=== PATIENT | female | born 1980 | race Caucasian/White ===

== ENCOUNTER 2018-11-26 09:01 | Day surgery (SDC) | payer OTHER ==
[~2018-11-26 09:01] MED LIST: Fluorescein 5 ML Vial ONE
[2018-11-26] MEDS ORDERED: Propofol 200 MG/20 ML SDV ONE (09:37)
[2018-11-26] MEDS ORDERED: Succinylcholine 200 MG/10 ML MDV ONE (09:38)
[2018-11-26] MEDS ORDERED: Rocuronium 100 MG/10 ML Syringe ONE (09:38)
[2018-11-26] MEDS ORDERED: fentaNYL 250 MCG/5 ML SDV ONE (09:38)
[2018-11-26] MEDS ORDERED: Midazolam 1 MG/ML 2 ML SDV ONE (09:38)
[2018-11-26] MEDS ORDERED: Glycopyrrolate 0.2 MG/ML SDV ONE ×2 (09:39→12:47)
[2018-11-26] MEDS ORDERED: Ondansetron 4 MG/2 ML SDV ONE (09:39)
[2018-11-26] MEDS ORDERED: Neostigmine Methylsulfate 1 MG/ML 5 ML Syringe ONE (09:39)
[2018-11-26] MEDS ORDERED: Dexamethasone 4 MG/ML 5 ML MDV ONE (09:39)
[2018-11-26] MEDS: Lactated Ringers 1,000 ML IV SCH ×2 (10:25→21:16)
[2018-11-26] MEDS ORDERED: Scopolamine 1.5 MG Transdermal Patch TRDERM PRN (10:57)
--- NOTE | 2018-11-26 10:57 | PCM.PREANE ---
Preanesthetic Assessment - Anesthesia/Transfusion/Family Hx Anesthesia History: Prior Anesthesia Without Reaction Family History of Anesthesia Reaction: No Transfusion History: No Prior Transfusion(s) - Review of Systems General: No Symptoms Pulmonary: No Symptoms Cardiovascular: No Symptoms Gastrointestinal: No Symptoms Neurological: No Symptoms Other: Reports: None - Physical Assessment NPO Status Date: 11/25/18 O2 Sat by Pulse Oximetry: 99 Respiratory Rate: 16 Vital Signs: Last Vital Signs Temp 97.7 F 11/26/18 10:10 Pulse 91 11/26/18 10:10 Resp 16 11/26/18 10:10 BP 140/79 11/26/18 10:10 Pulse Ox 99 11/26/18 10:10 Height: 5 ft 9 in Weight: 103.419 kg ASA Class: 1 Mental Status: Alert & Oriented x3 Airway Class: Mallampati = 1 Dentition: Reports: Normal Dentition ROM/Head Extension: Full Lungs: Clear to Auscultation, Normal Respiratory Effort Cardiovascular: Regular Rate, Regular Rhythm - Lab Values: Laboratory Last Values WBC 7.88 K/uL (4.0-11.0) 11/26/18 10:27 RBC 4.67 M/uL (4.30-5.90) 11/26/18 10:27 Hgb 12.5 g/dL (12.0-16.0) 11/26/18 10:27 Hct 37.9 % (36.0-46.0) 11/26/18 10:27 MCV 81.2 fL (80.0-98.0) 11/26/18 10:27 MCH 26.8 pg (27.0-32.0) L 11/26/18 10:27 MCHC 33.0 g/dL (31.0-37.0) 11/26/18 10:27 RDW Std Deviation 43.5 fl (28.0-62.0) 11/26/18 10:27 RDW Coeff of Jose 15 % (11.0-15.0) 11/26/18 10:27 Plt Count 305 K/uL (150-400) 11/26/18 10:27 MPV 10.60 fL (7.40-12.00) 11/26/18 10:27 Nucleated RBC % 0.0 /100WBC 11/26/18 10:27 Nucleated RBCs # 0 K/uL 11/26/18 10:27 - Allergies Allergies/Adverse Reactions: Allergies Allergy/AdvReac Type Severity Reaction Status Date / Time No Known Allergies Allergy Verified 11/22/18 10:24 - Blood Blood Available: No - Anesthesia Plan Pre-Op Medication Ordered: Other (ativan po, and trans derm scop) - Acknowledgements Anesthesia Type Planned: General Anesthesia Pt an Appropriate Candidate for the Planned Anesthesia: Yes Alternatives and Risks of Anesthesia Discussed w Pt/Guardian: Yes Pt/Guardian Understands and Agrees with Anesthesia Plan: Yes PreAnesthesia Questionnaire HEENT History: Reports: Allergic Rhinitis Cardiovascular History: Reports: None Respiratory History: Reports: None Gastrointestinal History: Reports: Other (See Below) Other Gastrointestinal History: occasional heartburn Genitourinary History: Reports: None [employer]ER History: Reports: Musculoskeletal History: Reports: Fracture Other Musculoskeletal History: hx fx wrist Neurological History: Reports: Concussion, Migraines Psychiatric History: Reports: None Endocrine/Metabolic History: Reports: Obesity/BMI 30+ Hematologic History: Reports: None Immunologic History: Reports: None Oncologic (Cancer) History: Reports: None Dermatologic History: Reports: None - Past Surgical History Head Surgeries/Procedures: Reports: None HEENT Surgical History: Reports: Adenoidectomy, Tonsillectomy Cardiovascular Surgical History: Reports: None Respiratory Surgical History: Reports: None GI Surgical History: Reports: None Female Surgical History: Reports: None Endocrine Surgical History: Reports: None Neurological Surgical History: Reports: None Musculoskeletal Surgical History: Reports: Arthroscopic Knee Oncologic Surgical History: Reports: None Dermatological Surgical History: Reports: None - SUBSTANCE USE Smoking Status *Q: Former Smoker Tobacco Use Within Last Twelve Months: No Recreational Drug Use History: No - HOME MEDS Home Medications: Home Meds Fexofenadine/Pseudoephedrine [Micheline-D 24 Hour Tablet] 180 mg PO DAILY PRN 12/07 [History] Melatonin/Pyridoxine HCl (B6) [Melatonin 3 mg Tablet] 2 tab PO BEDTIME 11/22/18 [History] diphenhydrAMINE [Benadryl] 25 mg PO DAILY 11/22/18 [History] - CURRENT (IN HOUSE) MEDS Current Meds: Current Medications Lactated Ringer's (Ringers, Lactated) 1,000 mls @ 100 mls/hr IV ASDIRECTED [facility] Last Admin: 11/26/18 10:25 Dose: 100 mls/hr Discontinued Medications Dexamethasone (Dexamethasone) Confirm Administered Dose 20 mg .ROUTE .STK-MED ONE Stop: 11/26/18 09:40 Fentanyl (Sublimaze) Confirm Administered Dose 250 mcg .ROUTE .STK-MED ONE Stop: 11/26/18 09:39 Fluorescein Sodium (Ak-Fluor) Confirm Administered Dose 5 ml .ROUTE .STK-MED ONE Stop: 11/26/18 07:32 Glycopyrrolate (Robinul) Confirm Administered Dose 0.4 mg .ROUTE .STK-MED ONE Stop: 11/26/18 09:40 Lidocaine HCl (Xylocaine-Mpf 1%) Confirm Administered Dose 5 mls @ as directed .ROUTE .[facility]-MED ONE Stop: 11/26/18 09:39 Midazolam HCl (Versed 1 Mg/Ml) Confirm Administered Dose 2 mg .ROUTE .[facility]-MED ONE Stop: 11/26/18 09:39 Neostigmine Methylsulfate (Neostigmine) Confirm Administered Dose 5 mg .ROUTE .[facility]-MED ONE Stop: 11/26/18 09:40 Ondansetron HCl (Zofran) Confirm Administered Dose 4 mg .ROUTE .STK-MED ONE Stop: 11/26/18 09:40 Propofol (Diprivan 20 Ml) Confirm Administered Dose 200 mg .ROUTE .STK-MED ONE Stop: 11/26/18 09:38 Rocuronium [place] (Zemuron) Confirm Administered Dose 100 mg .ROUTE .STK-MED ONE Stop: 11/26/18 09:39 Succinylcholine Chloride (Quelicin) Confirm Administered Dose 200 mg .ROUTE .[facility] -MED ONE Stop: 11/26/18 09:39
[2018-11-26] MEDS ORDERED: CEFAZOLIN IV ONE (11:19)
[2018-11-26] MEDS ORDERED: ceFAZolin/Dextrose,Iso-Osmotic 2 GM/50 ML Duplex Bag IV ONE (11:36)
[2018-11-26] MEDS ORDERED: Furosemide 40 MG/4 ML VIAL ONE (11:44)
[2018-11-26] MEDS ORDERED: ePHEDrine 50 MG/ML SDV ONE (12:47)
[2018-11-26] MEDS ORDERED: HYDROmorphone 2 MG/ML Syringe ONE ×2 (12:57→13:57)
[2018-11-26] MEDS ORDERED: Sodium Chloride 0.9% 20 ML ONE (13:01)
[2018-11-26] MEDS ORDERED: Ketorolac 30 MG/ML SDV ONE (13:06)
[2018-11-26] MEDS ORDERED: fentaNYL 100 MCG/2 ML SDV IVPUSH PRN (13:11)
[2018-11-26] MEDS ORDERED: Acetaminophen/oxyCODONE 325-5 MG Tab PO PRN ×2 (13:19)
[2018-11-26] MEDS ORDERED: Ondansetron 4 MG/2 ML SDV IVPUSH PRN (13:19)
[2018-11-26] MEDS ORDERED: Promethazine 25 MG/ML SDV IM PRN (13:19)
[2018-11-26] MEDS ORDERED: Ketorolac 30 MG/ML SDV IVPUSH ONE (13:19)
[2018-11-26] MEDS ORDERED: Morphine 4 MG/ML Syringe IVPUSH PRN (13:19)
--- NOTE | 2018-11-26 13:24 | PCM.OPNOTE ---
- General Post-Op/Procedure Note Date of Surgery/Procedure: 11/26/18 Operative Procedure(s): total vaginal hysterectomy with cystoscopy Findings: 10 week size uterus, cervical polyp Pre Op Diagnosis: menorrhagia Post-Op Diagnosis: Same Anesthesia Technique: General ET Tube Primary Surgeon: Heike Jiménez Secondary Surgeon: Isis Shrestha Anesthesia Provider: Bryant Robledo Weatherization And Housing Inspector: Angelique Fairchild Pathology: uterus Fluid Replacement, Intraop: 1,500 Output, Urine Amount: 175 EBL in mLs: 200 Complications: None known Condition: Good
[2018-11-26] MEDS ORDERED: HYDROmorphone 2 MG/ML SDV IVPUSH ONE (13:55)
--- NOTE | 2018-11-26 15:33 | PCM.POSTAN ---
POST ANESTHESIA ASSESSMENT - MENTAL STATUS Mental Status: Alert, Oriented - RESPIRATORY Respiratory Status: Respiratory Rate WNL, Airway Patent, O2 Saturation Stable - CARDIOVASCULAR CV Status: Pulse Rate WNL, Blood Pressure Stable - GASTROINTESTINAL GI Status: No Symptoms - POST OP HYDRATION Hydration Status: Adequate & Stable
[2018-11-26] MEDS: Ketorolac 30 MG/ML SDV IVPUSH SCH ×2 (15:58→19:09)
[2018-11-26] MEDS ORDERED: Temazepam 15 MG Cap PO PRN (17:53)
--- NOTE | 2018-11-26 17:55 | PCM.SN ---
- Free Text/Narrative Note: POD 0 after TVH stable, working on pain control, tolerating diet. She would like medication for sleep tonight, continue postop care, encouraged ambulation tonight.
--- NOTE | 2018-11-26 19:39 | OR ---
SURGEON: Heike Jiménez M.D. DATE OF PROCEDURE: 11/26/2018 PREOPERATIVE DIAGNOSIS: Menorrhagia. POSTOPERATIVE DIAGNOSIS: Menorrhagia. PROCEDURE: Total vaginal hysterectomy with cystoscopy. TAX SENIOR ASSOCIATE: Isis Shrestha M.D. ANESTHESIA: General endotracheal. FLUIDS: 1500 mL crystalloid. EBL: 200 mL. URINE OUTPUT: 175 mL. FINDINGS: Normal-appearing tubes and ovaries. Uterus enlarged to 10- to 11-week size with cervical polyp noted. COMPLICATIONS: None known. DISPOSITION: Stable to Recovery. BRIEF HISTORY: This is a 38-year-old female. She is G1, P1. She presents with abnormal uterine bleeding. Her periods last 7 to 10 days. At the heaviest, she is changing a super tampon and a pad every 2 hours. This lasts for approximately 3 days. Periods occur every 23 to 28 days. At this time, her periods are limiting her activity. She has previously tried the Mirena IUD, but had frequent episodes of severe pain. She does not want to try an IUD again. Additionally, she has an early onset heart disease history in her family and is not a candidate for hormonal management. She had an endometrial biopsy that was benign, normal pelvic ultrasound, normal thyroid, and normal Pap smear. She would like to proceed with definitive management with hysterectomy. She would like to retain her tubes and ovaries. She has had surgical risks reviewed including bleeding, infection; injury to bowel, bladder, blood vessels or any other organs; risk of thromboembolic event, risk of anesthesia, and risk of change in sexual function. Understanding all these risks, she does desire to proceed. DESCRIPTION OF PROCEDURE: With the patient in dorsal lithotomy position, under adequate general endotracheal anesthesia, the perineum and vagina were prepped with Betadine and draped in the usual fashion for vaginal surgery. SCDs were in place. Mahmood catheter had been placed and an appropriate time-out was held. She received 2 g of Ancef IV. Bimanual examination revealed a mobile 10- to 12-week size uterus. Speculum was placed into the vagina and a vaginal sidewall retractor was placed. The cervix was grasped with a Martell tenaculum, circumscribed with electrocautery. The anterior cul-de-sac was entered sharply. The vaginal right- angle retractor was placed anteriorly. The posterior cul-de-sac was entered sharply, and the Matilda-Auvard speculum was placed posteriorly. The uterosacral ligaments were then clamped, cut, and ligated using a Ravinder ligature of 2-0 Polysorb. Three additional pedicles were taken on the right and the left until the utero-ovarian ligament was identified. Each pedicle was taken with a Ravinder clamp and then doubly ligated using a stick tie followed by Ravinder ligature of 2-0 Polysorb. The remaining utero-ovarian ligaments were then cross clamped, cut, and ligated using a free tie followed by three-point ligature of 2-0 Polysorb. Immediately inferior to the left utero-ovarian ligament, there was an area of bleeding associated with uterine artery, and this was isolated, clamped, and ligated using a simple suture of 2-0 Polysorb. The pedicles were all then carefully inspected. The tubes and ovaries were inspected and appeared normal. The retained ligature on the utero-ovarian ligaments were then released. Once hemostasis was confirmed, the lower pedicles were again inspected and appeared hemostatic. The retained uterosacral ligatures on the right and left were ligated to the vaginal apices bilaterally. The vaginal mucosa was then closed with a running lock suture of 0 Polysorb. IV Lasix and fluorescein were then given. Cystoscopy was performed using sterile water as a distending medium. There was no evidence of any trauma to the bladder mucosa. There was good flow of bright yellow fluorescein-stained urine from bilateral ureteral orifices. This being completed, the cystoscope was removed from the bladder. The bladder was drained. A new Mahmood catheter was placed. The speculum was then placed in the vagina, and the cuff was inspected and was hemostatic. Final sponge, needle, and instrument counts were reported as correct. There were no known complications. The patient was transferred to Recovery in good condition. JAN / NICHOLAS /[id number]
[2018-11-27] MEDS: Ketorolac 30 MG/ML SDV IVPUSH SCH ×2 (01:35→07:28)
[2018-11-27] MEDS: Lactated Ringers 1,000 ML IV SCH (04:56)
--- NOTE | 2018-11-27 08:47 | PCM.SURGPN ---
- General Info Date of Service: 11/27/18 Date of Surgery/Procedure: 11/26/18 POD#: 1 Post-Op Diagnosis: Menorrhagia Functional Status: Reports: Pain Controlled, Tolerating Diet, Ambulating, Urinating - Review of Systems General: Reports: No Symptoms HEENT: Reports: No Symptoms Pulmonary: Reports: No Symptoms Cardiovascular: Reports: No Symptoms Gastrointestinal: Reports: No Symptoms Genitourinary: Reports: No Symptoms Musculoskeletal: Reports: No Symptoms Skin: Reports: No Symptoms Neurological: Reports: No Symptoms Psychiatric: Reports: No Symptoms - Patient Data Vitals - Most Recent: Last Vital Signs Temp 36.6 C 11/27/18 03:20 Pulse 84 11/27/18 03:20 Resp 20 11/27/18 03:20 BP 106/63 11/27/18 03:20 Pulse Ox 97 11/27/18 03:20 Weight - Most Recent: 103.419 kg I&O - Last 24 Hours: Intake & Output 11/26/18 11/27/18 11/27/18 22:59 06:59 14:59 Intake Total 250 3503 Output Total 150 2150 Balance 100 1353 Lab Results Last 24 Hrs: Laboratory Results - last 24 hr 11/26/18 11/26/18 11/26/18 Range/Units 10:27 10:27 10:27 WBC 7.88 (4.0-11.0) K/uL RBC 4.67 (4.30-5.90) M/uL Hgb 12.5 (12.0-16.0) g/dL Hct 37.9 (36.0-46.0) % MCV 81.2 (80.0-98.0) fL MCH 26.8 L (27.0-32.0) pg MCHC 33.0 (31.0-37.0) g/dL RDW Std Deviation 43.5 (28.0-62.0) fl RDW Coeff of Jose 15 (11.0-15.0) % Plt Count 305 (150-400) K/uL MPV 10.60 (7.40-12.00) fL Neut % (Auto) (48.0-80.0) % Lymph % (Auto) (16.0-40.0) % [place] % (Auto) (0.0-15.0) % Eos % (Auto) (0.0-7.0) % Baso % (Auto) (0.0-1.5) % Neut # (Auto) (1.4-5.7) K/uL Lymph # (Auto) (0.6-2.4) K/uL [place] # (Auto) (0.0-0.8) K/uL Eos # (Auto) (0.0-0.7) K/uL Baso # (Auto) (0.0-0.1) K/uL Nucleated RBC % 0.0 /100WBC Nucleated RBCs # 0 K/uL Sodium 143 (136-145) mmol/L Potassium 3.9 (3.5-5.1) mmol/L Chloride 107 (98-107) mmol/L Carbon Dioxide 24.4 (21.0-32.0) mmol/L BUN 15 (7.0-18.0) mg/dL Creatinine 1.1 H (0.6-1.0) mg/dL Est Cr Clr Drug Dosing 71.05 mL/min Estimated GFR (MDRD) 55.0 ml/min Glucose 103 (74-106) mg/dL Calcium 9.2 (8.5-10.1) mg/dL HCG, Qual NEGATIVE (NEG) Blood Type Antibody Screen 11/26/18 11/27/18 11/27/18 Range/Units 10:27 05:11 05:11 WBC 22.24 H (4.0-11.0) K/uL RBC 4.11 L (4.30-5.90) M/uL Hgb 11.0 L (12.0-16.0) g/dL Hct 33.8 L (36.0-46.0) % MCV 82.2 (80.0-98.0) fL MCH 26.8 L (27.0-32.0) pg MCHC 32.5 (31.0-37.0) g/dL RDW Std Deviation 44.0 (28.0-62.0) fl RDW Coeff of Jose 15 (11.0-15.0) % Plt Count 314 (150-400) K/uL MPV 10.70 (7.40-12.00) fL Neut % (Auto) 89.6 H (48.0-80.0) % Lymph % (Auto) 7.1 L (16.0-40.0) % [place] % (Auto) 3.3 (0.0-15.0) % Eos % (Auto) 0.0 (0.0-7.0) % Baso % (Auto) 0.0 (0.0-1.5) % Neut # (Auto) 19.9 H (1.4-5.7) K/uL Lymph # (Auto) 1.6 (0.6-2.4) K/uL [place] # (Auto) 0.7 (0.0-0.8) K/uL Eos # (Auto) 0.0 (0.0-0.7) K/uL Baso # (Auto) 0.0 (0.0-0.1) K/uL Nucleated RBC % 0.0 /100WBC Nucleated RBCs # 0 K/uL Sodium 142 (136-145) mmol/L Potassium 4.3 (3.5-5.1) mmol/L Chloride 107 (98-107) mmol/L Carbon Dioxide 27.1 (21.0-32.0) mmol/L BUN 13 (7.0-18.0) mg/dL Creatinine 1.1 H (0.6-1.0) mg/dL Est Cr Clr Drug Dosing 71.05 mL/min Estimated GFR (MDRD) 55.0 ml/min Glucose 116 H (74-106) mg/dL Calcium 8.7 (8.5-10.1) mg/dL HCG, Qual (NEG) Blood Type A POSITIVE Antibody Screen NEGATIVE Med Orders - Current: Current Medications Lactated Ringer's (Ringers, Lactated) 1,000 mls @ 100 mls/hr IV ASDIRECTED [facility] Last Admin: 11/27/18 04:56 Dose: 100 mls/hr Ketorolac Tromethamine (Toradol) 30 mg IVPUSH Q6H [facility] Stop: 12/01/18 13:19 Last Admin: 11/27/18 07:28 Dose: 30 mg Morphine Sulfate (Morphine) 4 mg IVPUSH Q2H PRN PRN Reason: Pain (severe 7-10) Last Admin: 11/26/18 16:04 Dose: 4 mg Ondansetron HCl (Zofran) 4 mg IVPUSH Q6H PRN PRN Reason: Nausea/Vomiting Oxycodone/Acetaminophen (Percocet 325-5 Mg) 1 tab PO Q4H PRN PRN Reason: Pain (moderate 4-6) Last Admin: 11/26/18 17:42 Dose: 1 tab Oxycodone/Acetaminophen (Percocet 325-5 Mg) 2 tab PO Q4H PRN PRN Reason: Pain (moderate 4-6) Last Admin: 11/26/18 21:16 Dose: 2 tab Promethazine HCl (Phenergan) 25 mg IM Q6H PRN PRN Reason: Nausea/Vomiting Scopolamine (Transderm-Scop) 1.5 mg TRDERM Q72H PRN PRN Reason: Nausea/Vomiting Last Admin: 11/26/18 11:02 Dose: 1.5 mg Temazepam (Restoril) 15 mg PO BEDTIME PRN PRN Reason: Insomnia Last Admin: 11/26/18 23:17 Dose: 15 mg Discontinued Medications Cefazolin Sodium/Dextrose (Ancef) Confirm Administered Dose 2 gm IV .STK-MED ONE Stop: 11/26/18 11:37 Dexamethasone (Dexamethasone) Confirm Administered Dose 20 mg .ROUTE .STK-MED ONE Stop: 11/26/18 09:40 Ephedrine Sulfate (Ephedrine Sulfate) Confirm Administered Dose 50 mg .ROUTE .STK-MED ONE Stop: 11/26/18 12:48 Fentanyl (Sublimaze) Confirm Administered Dose 250 mcg .ROUTE .STK-MED ONE Stop: 11/26/18 09:39 Fentanyl (Sublimaze) 50 mcg IVPUSH Q5M PRN PRN Reason: Pain (severe 7-10) Stop: 11/26/18 15:00 Fluorescein Sodium (Ak-Fluor) Confirm Administered Dose 5 ml .ROUTE .STK-MED ONE Stop: 11/26/18 07:32 Furosemide (Lasix) Confirm Administered Dose 40 mg .ROUTE .STK-MED ONE Stop: 11/26/18 11:45 Glycopyrrolate (Robinul) Confirm Administered Dose 0.4 mg .ROUTE .STK-MED ONE Stop: 11/26/18 09:40 Glycopyrrolate (Robinul) Confirm Administered Dose 0.4 mg .ROUTE .STK-MED ONE Stop: 11/26/18 12:48 Hydromorphone HCl (Dilaudid) Confirm Administered Dose 2 mg .ROUTE .STK-MED ONE Stop: 11/26/18 12:58 Hydromorphone HCl (Dilaudid) 2 mg IVPUSH ONETIME ONE Stop: 11/26/18 13:56 Last Admin: 11/26/18 15:59 Dose: Not Given Hydromorphone HCl (Dilaudid) Confirm Administered Dose 2 mg .ROUTE .STK-MED ONE Stop: 11/26/18 13:58 Last Admin: 11/26/18 14:23 Dose: 2 mg Lidocaine HCl (Xylocaine-Mpf 1%) Confirm Administered Dose 5 mls @ as directed .ROUTE .STK-MED ONE Stop: 11/26/18 09:39 Cefazolin Sodium/Dextrose 1 gm (/ Premix) 50 mls @ 100 mls/hr IV ONETIME ONE Stop: 11/26/18 11:48 Last Admin: 11/26/18 15:58 Dose: Not Given Acetaminophen (Ofirmev) Confirm Administered Dose 100 mls @ as directed IV .STK- MED ONE Stop: 11/26/18 11:46 Sodium Chloride (Normal Saline) Confirm Administered Dose 20 mls @ as directed .ROUTE .STK-MED ONE Stop: 11/26/18 13:02 Ketorolac Tromethamine (Toradol) Confirm Administered Dose 30 mg .ROUTE .STK- MED ONE Stop: 11/26/18 13:07 Ketorolac Tromethamine (Toradol) 30 mg IVPUSH ONETIME ONE Stop: 11/26/18 13:20 Last Admin: 11/26/18 15:58 Dose: Not Given Midazolam HCl (Versed 1 Mg/Ml) Confirm Administered Dose 2 mg .ROUTE .STK-MED ONE Stop: 11/26/18 09:39 Neostigmine Methylsulfate (Neostigmine) Confirm Administered Dose 5 mg .ROUTE .STK-MED ONE Stop: 11/26/18 09:40 Ondansetron HCl (Zofran) Confirm Administered Dose 4 mg .ROUTE .STK-MED ONE Stop: 11/26/18 09:40 Propofol (Diprivan 20 Ml) Confirm Administered Dose 200 mg .ROUTE .STK-MED ONE Stop: 11/26/18 09:38 Rocuronium [place] (Zemuron) Confirm Administered Dose 100 mg .ROUTE .STK-MED ONE Stop: 11/26/18 09:39 Succinylcholine Chloride (Quelicin) Confirm Administered Dose 200 mg .ROUTE .STK -MED ONE Stop: 11/26/18 09:39 - Exam Wound/Incisions: Other (minimal brown vaginal discharge. ) General: Alert, Oriented Lungs: Normal Respiratory Effort GI/Abdominal Exam: Soft, Non-Tender, No Distention, No Mass Extremities: Normal Inspection, Normal Range of Motion, Non-Tender, No Pedal Edema, Normal Capillary Refill Skin: Warm, Dry, Intact Neurological: No New Focal Deficit Psy/Mental Status: Alert, Normal Affect, Normal Mood - Problem List & Annotations (1) Menorrhagia SNOMED Code(s): 456904968 Code(s): N92.0 - EXCESSIVE AND FREQUENT MENSTRUATION WITH REGULAR CYCLE Status: Acute Current Visit: Yes - Problem List Review Problem List Initiated/Reviewed/Updated: Yes - My Orders Last 24 Hours: Active Orders 24 hr Category Date Time Status Patient Status [ADT] Routine ADT 11/26/18 13:19 Active Antiembolic Devices [RC] PER UNIT ROUTINE Care 11/26/18 13:20 Active Notify Provider Intake and Out [RC] ASDIRECTED Care 11/26/18 13:19 Active Notify Provider Vital Signs [RC] ASDIRECTED Care 11/26/18 13:19 Active Oxygen Therapy [RC] ASDIRECTED Care 11/26/18 13:19 Active RT Incentive Spirometry [RC] Q2HWA Care 11/26/18 13:19 Active Up With Assistance [RC] PER UNIT ROUTINE Care 11/26/18 13:19 Active Up ad Leann [RC] PER UNIT ROUTINE Care 11/26/18 13:19 Active Urinary Catheter Removal [RC] Per Unit Routine Care 11/26/18 13:19 Active Vital Signs [RC] Q4H Care 11/26/18 13:19 Active Regular Diet [DIET] Diet 11/26/18 Dinner Active Acetaminophen/oxyCODONE [Percocet 325-5 MG] Med 11/26/18 13:19 Active 1 tab PO Q4H PRN Acetaminophen/oxyCODONE [Percocet 325-5 MG] Med 11/26/18 13:19 Active 2 tab PO Q4H PRN Ketorolac [Toradol] Med 11/26/18 13:30 Active 30 mg IVPUSH Q6H Lactated Ringers [Ringers, Lactated] 1,000 ml Med 11/26/18 08:15 Active IV ASDIRECTED Morphine Med 11/26/18 13:19 Active 4 mg IVPUSH Q2H PRN Ondansetron [Zofran] Med 11/26/18 13:19 Active 4 mg IVPUSH Q6H PRN Promethazine [Phenergan] Med 11/26/18 13:19 Active 25 mg IM Q6H PRN Scopolamine [Transderm-Scop] Med 11/26/18 10:57 Active 1.5 mg TRDERM Q72H PRN Temazepam [Restoril] Med 11/26/18 17:53 Active 15 mg PO BEDTIME PRN Peripheral IV Discontinue [OM.PC] Routine Oth 11/26/18 13:19 Ordered Sequential Compression Device [OM.PC] Per Unit Routine Oth 11/26/18 13:19 Ordered Resuscitation Status Routine Resus Stat 11/26/18 13:19 Ordered Medication Orders Lactated Ringer's (Ringers, Lactated) 1,000 mls @ 100 mls/hr IV ASDIRECTED [facility] Last Admin: 11/27/18 04:56 Dose: 100 mls/hr Infusion: 11/27/18 04:56 Dose: 100 mls/hr Admin: 11/26/18 21:16 Dose: 100 mls/hr Infusion: 11/26/18 20:25 Dose: 100 mls/hr Admin: 11/26/18 10:25 Dose: 100 mls/hr Ketorolac Tromethamine (Toradol) 30 mg IVPUSH Q6H [facility] Stop: 12/01/18 13:19 Last Admin: 11/27/18 07:28 Dose: 30 mg Admin: 11/27/18 01:35 Dose: 30 mg Admin: 11/26/18 19:09 Dose: 30 mg Admin: 11/26/18 15:58 Dose: Morphine Sulfate (Morphine) 4 mg IVPUSH Q2H PRN PRN Reason: Pain (severe 7-10) Last Admin: 11/26/18 16:04 Dose: 4 mg Ondansetron HCl (Zofran) 4 mg IVPUSH Q6H PRN PRN Reason: Nausea/Vomiting Oxycodone/Acetaminophen (Percocet 325-5 Mg) 1 tab PO Q4H PRN PRN Reason: Pain (moderate 4-6) Last Admin: 11/26/18 17:42 Dose: 1 tab Oxycodone/Acetaminophen (Percocet 325-5 Mg) 2 tab PO Q4H PRN PRN Reason: Pain (moderate 4-6) Last Admin: 11/26/18 21:16 Dose: 2 tab Promethazine HCl (Phenergan) 25 mg IM Q6H PRN PRN Reason: Nausea/Vomiting Scopolamine (Transderm-Scop) 1.5 mg TRDERM Q72H PRN PRN Reason: Nausea/Vomiting Last Admin: 11/26/18 11:02 Dose: 1.5 mg Temazepam (Restoril) 15 mg PO BEDTIME PRN PRN Reason: Insomnia Last Admin: 11/26/18 23:17 Dose: 15 mg - Assessment Assessment (Free Text/Narrative):: POD#1 after total vaginal hysterectomy. Pain is well controlled minimal discharge, tolerating diet, would like to go home. - Plan Plan (Free Text/Narrative):: Discharge instructions reviewed. Follow up in 2 weeks, use of pain medications reviewed. She will use Ibuprofen for baseline pain and Percocet as needed for breakthrough pain.
== END 2018-11-27 09:30 | disposition home or self-care (01) ==
LOC: MW.SDS 09:01 → MW.MS 14:39 → MW.SDS 11-27 09:30
PROVIDERS: ATTEND Obstetrics & Gynecology
DX: D26.1 Other benign neoplasm of corpus uteri (principal); N84.1 Polyp of cervix uteri; E66.9 Obesity, unspecified; Z68.33 Body mass index [BMI] 33.0-33.9, adult; F41.9 Anxiety disorder, unspecified; Z87.891 Personal history of nicotine dependence; Z79.899 Other long term (current) drug therapy
CPT/HCPCS: 36415; 58260; 80048; 84703; 85025; 85027; 86850; 86900; 86901; A9270; J0131; J0330; J0690; J1100; J1170; J1885; J1940; J2001; J2250; J2270; J2405; J2704; J3010; J3490; J7120

== ENCOUNTER 2020-07-09 02:35 | Emergency (ER) | payer OTHER ==
[2020-07-09] MEDS ORDERED: Sodium Chloride 0.9% 2.5 ML Syringe FLUSH PRN (02:53)
[2020-07-09] MEDS ORDERED: Ondansetron 4 MG/2 ML SDV IVPUSH ONE (02:53)
[2020-07-09] MEDS ORDERED: Sodium Chloride 0.9% 10 ML Syringe FLUSH PRN (02:53)
[2020-07-09] MEDS ORDERED: Morphine 4 MG/ML Syringe IVPUSH ONE (02:53)
--- NOTE | 2020-07-09 02:58 | EDM.PDOC ---
ED HPI GENERAL MEDICAL PROBLEM - General Chief Complaint: Abdominal Pain Stated Complaint: RT SIDE HUIRTS Time Seen by Provider: 07/09/20 02:37 - History of Present Illness INITIAL COMMENTS - FREE TEXT/NARRATIVE: Otherwise well 40-year-old female presenting with acute severe right upper quadrant and right flank pain. Pain started approximately 4 hours ago. It is constant and cramping and severe no associated nausea or vomiting focused in the epigastrium and right upper quadrant radiating to the right flank. No dysuria or hematuria no fevers no chills no change in bowel habits. Patient reports that for the last couple years she has experienced these episodes they were initially only occasional however she is more recently experienced them 3 times in the last week. She was seen at [place] and had a right upper quadrant ultrasound and told that her gallbladder was larger than normal. Her doctor there was waiting on insurance for additional testing. Patient has a remote history of hysterectomy but no other surgeries. 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: Musculoskeletal History: Reports: Fracture Other Musculoskeletal History: hx fx wrist Neurological History: Reports: Concussion, Migraines Psychiatric History: Reports: None Endocrine/Metabolic History: Reports: Obesity/BMI 30+ Hematologic History: Reports: None Immunologic History: Reports: None Oncologic (Cancer) History: Reports: None Dermatologic History: Reports: None - Past Surgical History Head Surgeries/Procedures: Reports: None HEENT Surgical History: Reports: Adenoidectomy, Tonsillectomy Cardiovascular Surgical History: Reports: None Respiratory Surgical History: Reports: None GI Surgical History: Reports: None Female Surgical History: Reports: None Endocrine Surgical History: Reports: None Neurological Surgical History: Reports: None Musculoskeletal Surgical History: Reports: Arthroscopic Knee Oncologic Surgical History: Reports: None Dermatological Surgical History: Reports: None Social & Family History - Caffeine Use Caffeine Use: Reports: Coffee Caffeine Use Comment: 1 c/daily ED ROS GENERAL - Review of Systems Review Of Systems: See Below Free Text/Narrative/Comment: General: No fever. Skin: No rash. Eyes: No vision problems. ENT: No sore throat. Neck: No neck stiffness. Respiratory: No shortness of breath. Cardiac: No chest pain. Gastrointestinal: Per HPI Urinary: No dysuria. Musculoskeletal: No myalgias/arthralgias. Neurologic: No headache. ED EXAM, GENERAL - Physical Exam Exam: See Below Free Text/Narrative:: General Appearance: No acute distress, appears comfortable Skin: No rash HEENT: Normocephalic/atraumatic, sclera anicteric, mucous membranes moist Neck: Normal range of motion Chest and Lungs: Bilateral breath sounds, clear to auscultation Cardiovascular: Regular rate and rhythm, no murmur Abdomen: Right upper quadrant tenderness without guarding or rebound no peritonitis Back: Normal Musculoskeletal: No edema or tenderness Neurologic: Awake, alert, no obvious deficits, moving all extremities Psychiatric: Appropriate, cooperative Course - Vital Signs Last Recorded V/S: Last Vital Signs Temp 95.5 F L 07/09/20 02:47 Pulse 74 07/09/20 03:39 Resp 16 07/09/20 03:39 BP 135/90 07/09/20 03:39 Pulse Ox 97 07/09/20 03:39 - Orders/Labs/Meds Orders: Active Orders 24 hr Category Date Time Status URINALYSIS W/MICROSCOPIC [UA W/MICROSCOPIC] [URIN] Stat Lab 07/09/20 03:10 Results Sodium Chloride 0.9% [Saline Flush] Med 07/09/20 02:53 Active 10 ml FLUSH ASDIRECTED PRN Sodium Chloride 0.9% [Saline Flush] Med 07/09/20 02:53 Active 2.5 ml FLUSH ASDIRECTED PRN Saline Lock Insert [OM.PC] Stat Oth 07/09/20 02:53 Ordered Medication Orders Sodium Chloride (Saline Flush) 10 ml FLUSH ASDIRECTED PRN PRN Reason: Keep Vein Open Sodium Chloride (Saline Flush) 2.5 ml FLUSH ASDIRECTED PRN PRN Reason: Keep Vein Open Labs: Laboratory Tests 07/09/20 07/09/20 07/09/20 Range/Units 02:50 02:50 03:10 WBC 11.63 H (4.0-11.0) K/uL RBC 4.62 (4.30-5.90) M/uL Hgb 13.7 (12.0-16.0) g/dL Hct 40.5 (36.0-46.0) % MCV 87.7 (80.0-98.0) fL MCH 29.7 (27.0-32.0) pg MCHC 33.8 (31.0-37.0) g/dL RDW Std Deviation 43.3 (28.0-62.0) fl RDW Coeff of Jose 14 (11.0-15.0) % Plt Count 278 (150-400) K/uL MPV 10.70 (7.40-12.00) fL Neut % (Auto) 66.9 (48.0-80.0) % Lymph % (Auto) 25.5 (16.0-40.0) % [place] % (Auto) 5.2 (0.0-15.0) % Eos % (Auto) 2.1 (0.0-7.0) % Baso % (Auto) 0.3 (0.0-1.5) % Neut # (Auto) 7.8 H (1.4-5.7) K/uL Lymph # (Auto) 3.0 H (0.6-2.4) K/uL [place] # (Auto) 0.6 (0.0-0.8) K/uL Eos # (Auto) 0.2 (0.0-0.7) K/uL Baso # (Auto) 0.0 (0.0-0.1) K/uL Nucleated RBC % 0.0 /100WBC Nucleated RBCs # 0 K/uL Sodium 142 (136-145) mmol/L Potassium 3.8 (3.5-5.1) mmol/L Chloride 105 (98-107) mmol/L Carbon Dioxide 26.8 (21.0-32.0) mmol/L BUN 12 (7.0-18.0) mg/dL Creatinine 1.0 (0.6-1.0) mg/dL Est Cr Clr Drug Dosing 73.93 mL/min Estimated GFR (MDRD) > 60.0 ml/min Glucose 100 (74-106) mg/dL Calcium 9.0 (8.5-10.1) mg/dL Total Bilirubin 0.4 (0.2-1.0) mg/dL AST 25 (15-37) IU/L ALT 30 (14-63) IU/L Alkaline Phosphatase 54 (46-116) U/L Total Protein 7.2 (6.4-8.2) g/dL Albumin 4.0 (3.4-5.0) g/dL Globulin 3.2 (2.6-4.0) g/dL Albumin/Globulin Ratio 1.3 (0.9-1.6) Lipase 87 (73-393) U/L Urine Color YELLOW Urine Appearance CLEAR Urine pH 5.5 (5.0-8.0) Ur Specific [place] <= 1.005 (1.001-1.035) Urine Protein NEGATIVE (NEGATIVE) mg/dL Urine Glucose (UA) NEGATIVE (NEGATIVE) mg/dL Urine Ketones NEGATIVE (NEGATIVE) mg/dL Urine Occult Blood NEGATIVE (NEGATIVE) Urine Nitrite NEGATIVE (NEGATIVE) Urine Bilirubin NEGATIVE (NEGATIVE) Urine Urobilinogen 0.2 (<2.0) EU/dL Ur Leukocyte Esterase NEGATIVE (NEGATIVE) Meds: Medications Generic Name Dose Route Start Last Admin Trade Name Freq PRN Reason Stop Dose Admin Sodium Chloride 10 ml 07/09/20 02:53 Saline Flush FLUSH ASDIRECTED PRN Keep Vein Open Sodium Chloride 2.5 ml 07/09/20 02:53 Saline Flush FLUSH ASDIRECTED PRN Keep Vein Open Discontinued Medications Generic Name Dose Route Start Last Admin Trade Name Freq PRN Reason Stop Dose Admin Morphine Sulfate 4 mg 07/09/20 02:53 07/09/20 03:00 Morphine IVPUSH 07/09/20 02:54 4 mg ONETIME ONE Administration Ondansetron HCl 4 mg 07/09/20 02:53 07/09/20 03:00 Zofran IVPUSH 07/09/20 02:54 4 mg ONETIME ONE Administration Departure - Departure Time of Disposition: 04:10 Disposition: Home, Self-Care 01 Condition: Good Clinical Impression: Biliary colic - Discharge Information *PRESCRIPTION DRUG MONITORING PROGRAM REVIEWED*: Not Applicable *COPY OF PRESCRIPTION DRUG MONITORING REPORT IN PATIENT GO: Not Applicable Instructions: Biliary Colic, Adult Referrals: Ramsey Foley MD [Physician] - Forms: ED Department Discharge Additional Instructions: Please be sure to follow-up with your doctor in [place]. You could also follow-up with our local surgeons. I urged you to avoid fatty meals and large meals as this may trigger an attack. The following information is given to patients seen in the emergency department who are being discharged to home. This information is to outline your options for follow-up care. We provide all patients seen in our emergency department with a follow-up referral. The need for follow-up, as well as the timing and circumstances, are variable d epending upon the specifics of your emergency department visit. If you don't have a primary care physician on staff, we will provide you with a referral. We always advise you to contact your personal physician following an emergency department visit to inform them of the circumstance of the visit and for follow-up with them and/or the need for any referrals to a consulting specialist. The emergency department will also refer you to a specialist when appropriate. This referral assures that you have the opportunity for follow-up care with a specialist. All of these measure are taken in an effort to provide you with optimal care, which includes your follow-up. Under all circumstances we always encourage you to contact your private physician who remains a resource for coordinating your care. When calling for follow-up care, please make the office aware that this follow-up is from your recent emergency room visit. If for any reason you are refused follow-up, please contact the [facility] Emergency Department at and asked to speak to the emergency department charge nurse. Sepsis Event Note (ED) - Evaluation Sepsis Screening Result: No Definite Risk - Focused Exam Vital Signs: Vital Signs Temp Pulse Resp BP Pulse Ox 07/09/20 03:39 74 16 135/90 97 07/09/20 02:47 95.5 F L 94 16 137/103 H 98 - My Orders Last 24 Hours: My Active Orders 07/09/20 02:53 Sodium Chloride 0.9% [Saline Flush] 10 ml FLUSH ASDIRECTED PRN Sodium Chloride 0.9% [Saline Flush] 2.5 ml FLUSH ASDIRECTED PRN Saline Lock Insert [OM.PC] Stat 07/09/20 03:10 URINALYSIS W/MICROSCOPIC [UA W/MICROSCOPIC] [URIN] Stat - Assessment/Plan Last 24 Hours: My Active Orders 07/09/20 02:53 Sodium Chloride 0.9% [Saline Flush] 10 ml FLUSH ASDIRECTED PRN Sodium Chloride 0.9% [Saline Flush] 2.5 ml FLUSH ASDIRECTED PRN Saline Lock Insert [OM.PC] Stat 07/09/20 03:10 URINALYSIS W/MICROSCOPIC [UA W/MICROSCOPIC] [URIN] Stat Assessment:: 40-year-old female presenting with signs and symptoms that are most consistent with biliary pathology biliary colic, cholelithiasis, choledocholithiasis, acute cholecystitis. Renal colic is a consideration as well. No lower abdominal symptoms that would suggest diverticulitis or appendicitis and no chest or pulmonary symptoms that would suggest pneumonia or ACS. Morphine Zofran for symptoms CBC, CMP, lipase, right upper quadrant ultrasound to start. If these are unremarkable patient may need CT scan at that time. 0410: Patient's labs are good. Ultrasound demonstrates some significant gallbladder sludge near the neck of the gallbladder but no signs of obstruction or infection and a normal CBD. Given these findings I do think the gallbladder is a reasonable source for the patient's pain she has nothing to suggest renal colic or other acute process. Patient symptoms have resolved. Given this I see no indication for emergent surgical consultation. Patient will follow-up with her doctor in [place] have also provided her with our local surgery follow- up.
[2020-07-09 03:27] LABS: BLOOD UREA NITROGEN,BUN 12 mg/dL (7.0-18.0); CARBON DIOXIDE,CO2 26.8 mmol/L (21.0-32.0); CHLORIDE,CL 105 mmol/L (98-107); GLUCOSE RANDOM 100 mg/dL (74-106); LIPASE 87 U/L (73-393); POTASSIUM,K 3.8 mmol/L (3.5-5.1); SODIUM,NA 142 mmol/L (136-145)
--- NOTE | 2020-07-09 03:54 | US ---
INDICATION: Right abdominal pain TECHNIQUE: Ultrasound abdomen limited. Sonographic images of the right upper quadrant were obtained using hardy-scale and color Doppler images. COMPARISON: None available FINDINGS: Liver: Normal in size and echotexture. No masses. No intrahepatic biliary dilatation. Gallbladder: Gallbladder sludge. A 6 mm non shadowing, nonmobile echogenic focus near the gallbladder neck which could represent an adherent sludge ball or polyp. An apparent small linear echogenic focus along the gallbladder wall could be artifactual or may represent mild adenomyomatosis. No significant gallbladder wall thickening. A negative sonographic Rutherford`s sign. Common bile duct: 2 mm. Pancreas: The distal pancreatic body and tail are partially obscured. No discrete abnormality seen in the visualized portions. Right kidney: 10.9 cm. Unremarkable echotexture. No hydronephrosis. Vasculature: Proximal abdominal aorta and IVC are within normal limits. IMPRESSION: Gallbladder sludge. A 6 mm adherent sludge ball versus gallbladder wall polyp. Recommend follow-up. No shadowing gallstones seen. Dictated by Brian Loyd MD @ Jul 09 2020 3:34AM Signed by Dr. Brian Loyd @ Jul 09 2020 3:53AM
== END 2020-07-09 04:23 | disposition home or self-care (01) ==
LOC: MW.ED 02:35
DX: K80.50 Calculus of bile duct without cholangitis or cholecystitis without obstruction (principal); E66.9 Obesity, unspecified; Z68.35 Body mass index [BMI] 35.0-35.9, adult
CPT/HCPCS: 36415; 76705; 80053; 81001; 83690; 85025; 96374; 96375; 99284; J2270; J2405; 99283

== ENCOUNTER 2020-08-05 09:14 | Day surgery (SDC) | payer OTHER ==
[~2020-08-05 09:14] MED LIST changes: +Acetaminophen 1,000 MG in Premix Bag 1 BAG IV ONE; -Fluorescein 5 ML Vial ONE; +Glycopyrrolate 0.2 MG/ML SDV ONE; +Indocyanine Green 25 MG SDV ONE; +Lactated Ringers 1,000 ML IV SCH; +Lidocaine 2% 5 ML SDV ONE; +Midazolam 1 MG/ML 2 ML SDV ONE; +Ondansetron 4 MG/2 ML SDV ONE; +Pregabalin 75 MG Cap PO SCH; +Propofol 200 MG/20 ML SDV ONE; +Rocuronium Bromide 50 MG/5 ML Syringe ONE; +cefOXitin 2 GM in Premix Bag 1 BAG IV ONE; +fentaNYL 250 MCG/5 ML SDV ONE
[2020-08-05] MEDS ORDERED: Bupivacaine 25%/EPINEPHrine/PF 30 ML ONE (09:36)
[2020-08-05] MEDS ORDERED: Octyl 2-Cyanoacrylate 1 Tube ONE (09:36)
[2020-08-05] MEDS ORDERED: Scopolamine 1.5 MG Transdermal Patch TRDERM PRN (09:44)
--- NOTE | 2020-08-05 09:47 | PCM.PREANE ---
Preanesthetic Assessment - Anesthesia/Transfusion/Family Hx Anesthesia History: Prior Anesthesia Without Reaction Family History of Anesthesia Reaction: No Transfusion History: No Prior Transfusion(s) - Review of Systems General: No Symptoms Pulmonary: No Symptoms Cardiovascular: No Symptoms Gastrointestinal: Abdominal Pain Neurological: No Symptoms Other: Reports: None - Physical Assessment Vital Signs: Last Vital Signs Temp 36.9 C 08/05/20 09:25 Pulse 90 08/05/20 09:25 Resp 16 08/05/20 09:25 BP 162/105 H 08/05/20 09:25 Pulse Ox 90 L 08/05/20 09:25 Height: 5 ft 8 in Weight: 102.965 kg ASA Class: 2 Mental Status: Alert & Oriented x3 Airway Class: Mallampati = 2 Dentition: Reports: Normal Dentition, [place](s) (gold crown rt. sice (back) - one upper the other lower) Thyro-Mental Finger Breadths: 3 Mouth Opening Finger Breadths: 3 ROM/Head Extension: Full Lungs: Clear to Auscultation, Normal Respiratory Effort Cardiovascular: Regular Rate, Regular Rhythm - Lab Values: Laboratory Last Values SARS-CoV-2 RNA ([place]) NEGATIVE (NEGATIVE) 08/05/20 07:55 - Allergies Allergies/Adverse Reactions: Allergies Allergy/AdvReac Type Severity Reaction Status Date / Time No Known Allergies Allergy Verified 07/24/20 08:11 - Blood Blood Available: No - Anesthesia Plan Pre-Op Medication Ordered: None - Acknowledgements Anesthesia Type Planned: General Anesthesia Pt an Appropriate Candidate for the Planned Anesthesia: Yes Alternatives and Risks of Anesthesia Discussed w Pt/Guardian: Yes Pt/Guardian Understands and Agrees with Anesthesia Plan: Yes PreAnesthesia Questionnaire HEENT History: Reports: Allergic Rhinitis Cardiovascular History: Reports: None Respiratory History: Reports: None Gastrointestinal History: Reports: Irritable Bowel Syndrome, Other (See Below) Other Gastrointestinal History: gallbladder sludge, heartburn, right upper quadrant pain Genitourinary History: Reports: None 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: Musculoskeletal History: Reports: Fracture Other Musculoskeletal History: hx fx right wrist Neurological History: Reports: Migraines (getting better) Psychiatric History: Reports: None Endocrine/Metabolic History: Reports: Obesity/BMI 30+ (BMI 34.5) Hematologic History: Reports: None Immunologic History: Reports: None Oncologic (Cancer) History: Reports: None Dermatologic History: Reports: None - Infectious Disease History Infectious Disease History: Reports: Chicken Pox Other Infectious Disease History: when a child - Past Surgical History Head Surgeries/Procedures: Reports: None HEENT Surgical History: Reports: Adenoidectomy, Tonsillectomy Cardiovascular Surgical History: Reports: None Respiratory Surgical History: Reports: None GI Surgical History: Reports: None Female Surgical History: Reports: None Endocrine Surgical History: Reports: None Neurological Surgical History: Reports: None Musculoskeletal Surgical History: Reports: Arthroscopic Knee Other Musculoskeletal Surgeries/Procedures:: left knee Oncologic Surgical History: Reports: None Dermatological Surgical History: Reports: None - SUBSTANCE USE Tobacco Use Status *Q: Former Tobacco User - HOME MEDS Home Medications: Home Meds Sucralfate [Carafate] 1 tab PO QID PRN 07/09/20 [History] diphenhydrAMINE [Benadryl] 1 tab PO BEDTIME 07/24/20 [History] - CURRENT (IN HOUSE) MEDS Current Meds: Current Medications Lactated Ringer's (Ringers, Lactated) 1,000 mls @ 125 mls/hr IV ASDIRECTED SHELLEY Pregabalin (Lyrica) 150 mg PO DAILY SHELLEY Discontinued Medications Fentanyl (Sublimaze) Confirm Administered Dose 250 mcg .ROUTE .STK-MED ONE Stop: 08/05/20 09:14 Glycopyrrolate (Robinul) Confirm Administered Dose 0.4 mg .ROUTE .STK-MED ONE Stop: 08/05/20 09:14 Cefoxitin Sodium 2 gm/ Premix 50 mls @ 100 mls/hr IV ONETIME ONE Stop: 08/04/20 11:37 Acetaminophen 1,000 mg/ Premix 100 mls @ 400 mls/hr IV NOW ONE Stop: 08/05/20 07:44 Bupivacaine HCl/Epinephrine Bitart (Sensorc Mpf 0.25%-Epi [id number]) Confirm Administered Dose 30 mls @ as directed .ROUTE .STK-MED ONE Stop: 08/05/20 09:37 Indocyanine Green (Indocyanine Green) 5 mg .XX NOW ONE Stop: 08/05/20 07:31 Lidocaine (Xylocaine-Mpf 2%) Confirm Administered Dose 5 ml .ROUTE .STK-MED ONE Stop: 08/05/20 09:14 Midazolam HCl (Versed 1 Mg/Ml) Confirm Administered Dose 2 mg .ROUTE .STK-MED ONE Stop: 08/05/20 09:14 Octyl Cyanoacrylate (Dermabond Advance) Confirm Administered Dose 1 applic .ROUTE .STK-MED ONE Stop: 08/05/20 09:37 Ondansetron HCl (Zofran) Confirm Administered Dose 4 mg .ROUTE .STK-MED ONE Stop: 08/05/20 09:14 Propofol (Diprivan 20 Ml) Confirm Administered Dose 200 mg .ROUTE .STK-MED ONE Stop: 08/05/20 09:14 Rocuronium [place] (Rocuronium [place]) Confirm Administered Dose 50 mg .ROUTE .STK-MED ONE Stop: 08/05/20 09:14
[2020-08-05] MEDS ORDERED: cefOXitin 1 GM Vial ONE ×2 (10:38)
[2020-08-05] MEDS ORDERED: Sodium Chloride 0.9% 20 ML ONE (10:38)
[2020-08-05] MEDS ORDERED: Glycopyrrolate 0.2 MG/ML SDV ONE (11:10)
[2020-08-05] MEDS ORDERED: Ketorolac 30 MG/ML SDV ONE (11:11)
[2020-08-05] MEDS ORDERED: Atropine 0.1 MG/ML 10 ML Syringe IVPUSH PRN ×2 (11:15)
[2020-08-05] MEDS ORDERED: fentaNYL 100 MCG/2 ML SDV IVPUSH PRN (11:15)
[2020-08-05] MEDS ORDERED: Naloxone 0.4 MG/ML Syringe IVPUSH PRN (11:15)
[2020-08-05] MEDS ORDERED: EPINEPHrine 1:10,000 1 MG/10 ML Syringe IVPUSH PRN (11:15)
[2020-08-05] MEDS ORDERED: Albuterol 0.083% 2.5 MG/3 ML Neb Soln NEB PRN (11:15)
[2020-08-05] MEDS ORDERED: 50% Dextrose in Water 50 ML Syringe IVPUSH PRN (11:15)
[2020-08-05] MEDS ORDERED: ePHEDrine 50 MG/ML SDV ONE (11:15)
--- NOTE | 2020-08-05 11:25 | PCM.OPNOTE ---
- General Post-Op/Procedure Note Date of Surgery/Procedure: 08/05/20 Operative Procedure(s): Laparoscopic cholecystectomy Findings: Slightly edematous gallbladder Dictation Number [id number] Pre Op Diagnosis: symptomatic cholelithiasis Post-Op Diagnosis: symptomatic cholelithiasis Anesthesia Technique: General ET Tube Primary Surgeon: Ramsey Foley Pathology: gallbladder Complications: None Condition: Good
--- NOTE | 2020-08-05 12:20 | PCM.POSTAN ---
POST ANESTHESIA ASSESSMENT - MENTAL STATUS Mental Status: Alert, Oriented - VITAL SIGNS Vital Signs: Last Vital Signs Temp 36.4 C 08/05/20 12:03 Pulse 89 08/05/20 12:03 Resp 14 08/05/20 12:03 BP 123/79 08/05/20 12:03 Pulse Ox 93 L 08/05/20 12:03 - RESPIRATORY Respiratory Status: Respiratory Rate WNL, Airway Patent, O2 Saturation Stable - CARDIOVASCULAR CV Status: Pulse Rate WNL, Blood Pressure Stable - GASTROINTESTINAL GI Status: No Symptoms - PAIN Pain Score: 2 - POST OP HYDRATION Hydration Status: Adequate & Stable - OBSERVATIONS Free Text/Narrative:: No anesthesia problems
[2020-08-05] MEDS: fentaNYL 100 MCG/2 ML SDV IVPUSH PRN ×2 (13:19→14:02)
[2020-08-05] MEDS ORDERED: Acetaminophen/HYDROcodone 325-10 MG Tab PO ONE (13:50)
--- NOTE | 2020-08-05 14:40 | PCM48HPAN ---
Post Anesthesia Note - EVALUATION WITHIN 48HRS OF ANESTHETIC Vital Signs in Normal Range: Yes Patient Participated in Evaluation: Yes Respiratory Function Stable: Yes Airway Patent: Yes Cardiovascular Function Stable: Yes Hydration Status Stable: Yes Pain Control Satisfactory: Yes Nausea and Vomiting Control Satisfactory: Yes Mental Status Recovered: Yes Vital Signs: Last Vital Signs Temp 36.4 C 08/05/20 12:03 Pulse 72 08/05/20 13:03 Resp 16 08/05/20 13:03 BP 117/71 08/05/20 13:03 Pulse Ox 94 L 08/05/20 12:33 - COMMENTS/OBSERVATIONS Free Text/Narrative:: No anesthesia problems
--- NOTE | 2020-08-05 18:59 | OR ---
SURGEON: DIMPLE MENDOZA MD DATE OF PROCEDURE: 08/05/2020 PREOPERATIVE DIAGNOSIS: Symptomatic cholelithiasis. POSTOPERATIVE DIAGNOSIS: Symptomatic cholelithiasis. PROCEDURE PERFORMED: Laparoscopic cholecystectomy. PRIMARY SURGEON: Dimple Mendoza MD ANESTHESIA: General. ESTIMATED BLOOD LOSS: 5 mL. COMPLICATIONS: None. SPECIMENS: Gallbladder. REASON FOR PROCEDURE: The patient is a pleasant 40-year-old female who has had issues with gallbladder for past 10 years. They became more frequent. The patient had ultrasound that showed gallbladder sludge. Did go over the risks, goals, and alternatives of the procedure again with the patient. She wishes to proceed. PROCEDURE IN DETAIL: The patient was brought back to the OR. She was prepped and draped in usual fashion. SCDs were placed. Preoperative antibiotics were given and anesthesia provided by the Anesthesia team. After time-out was performed, an infraumbilical incision was made. It was carried down to the fascia. The abdomen was opened in an open Sunita technique and insufflation began. After pneumoperitoneum was established, abdomen was inspected. No entry injury was noted. Now, three more 5 mm trocars were placed; one in the epigastric, one in the right upper quadrant, one in the right lower quadrant, all under direct visualization. Now, the fundus of the gallbladder was grasped and elevated. Critical view was gently dissected out, mainly with blunt dissection. Did get a great critical view. Did use indocyanine green for a good views of the cystic duct. Did do a flush to view the cystic artery. After these were identified, they were clipped and transected. The gallbladder was then removed using the Harmonic scalpel. No other tubular structures were encountered. Gallbladder was placed in Endo Catch. Now, the operative site was again inspected. There was good hemostasis. Clips appeared still in place. Now, the three 5 mm trocars were removed and the Sunita trocar was removed. The pneumoperitoneum was released and the gallbladder in the Endo Catch bag was also removed. Now, the umbilical incision was closed, the fascia was closed with 0 Vicryl in a [id number] stitch. All the trocar sites were again injected with remaining of the local and closed with 4-0 Monocryl and Dermabond. The patient was transferred to recovery room in stable condition. Sponge and needle counts were also correct. BUTCH / NICHOLAS /[id number]
== END 2020-08-05 14:35 | disposition home or self-care (01) ==
LOC: MW.SDS 09:14
PROVIDERS: ATTEND Surgery
DX: K80.10 Calculus of gallbladder with chronic cholecystitis without obstruction (principal); G43.909 Migraine, unspecified, not intractable, without status migrainosus; E66.9 Obesity, unspecified; Z79.899 Other long term (current) drug therapy; Z98.890 Other specified postprocedural states; Z87.891 Personal history of nicotine dependence; Z68.34 Body mass index [BMI] 34.0-34.9, adult; Z01.812 Encounter for preprocedural laboratory examination; Z20.828 Contact with and (suspected) exposure to other viral communicable diseases
CPT/HCPCS: 47562; 87635; A9270; J0131; J0694; J1885; J2001; J2250; J2405; J2704; J3010; J3490; J7120; 00790; U0002